=== PATIENT | female | born 1930 | race Caucasian/White ===

== ENCOUNTER 2016-07-25 14:28 | Inpatient (IN) | payer MEDICARE, OTHER ==
[2016-07-25] MEDS ORDERED: Azithromycin 250 MG Tab PO ONE (15:36)
[2016-07-25] MEDS: cefTRIAXone 1 GM Vial IVPUSH SCH (15:39)
[2016-07-25] MEDS ORDERED: Bisacodyl 10 MG Supp RECTAL PRN (17:12)
[2016-07-25] MEDS ORDERED: Calcium Carbonate 750 MG Tab.Chew PO PRN (17:12)
[2016-07-25] MEDS ORDERED: Bisacodyl 5 MG Tab PO PRN (17:12)
[2016-07-25] MEDS: Sodium Chloride 0.9% 1,000 ML IV SCH (17:30)
--- NOTE | 2016-07-25 18:45 | PCM.HP ---
H&P History of Present Illness - General Date of Service: 07/25/16 Admit Problem/Dx: Admission Diagnosis/Problem Admission Diagnosis/Problem Pneumonia Source of Information: Patient, Family, jail records History Limitations: Reports: Altered mental status - History of Present Illness Initial Comments - Free Text/Narative: Mrs. Baptiste is an 85 yo female with PMH of HTN, carotid atherosclerosis, parathyroid adenoma, hypothyroidism, hyperlipidemia, impaired fasting glucose, depression, parkinson's disease, reflux esophagitis, osteoarthritis, and chronic kidney disease who presented to clinic today for evaluation of a cough x 4-5 days. The majority of the history is obtained from long-term staff and the patient's son given her underlying memory impairment. Her son had also been concerned that her breathing was becoming more labored. The patient endorses some subjective fever and chills but has not had a measured fever. Other symptoms include nasal congestion, rhinorrhea, generalized weakness, sleepiness , and an episode of nonbloody vomiting yesterday. The patient denies any chest pain or shortness of breath. There are multiple sick contacts at the care center but no known exposures to influenza. She has not taken any OTC cares. Abdomen Pain Score (Numeric/FACES): 4 - Related Data Allergies/Adverse Reactions: Allergies Allergy/AdvReac Type Severity Reaction Status Date / Time codeine AdvReac Severe Vomiting Verified 07/25/16 14:54 Home Medications: Home Meds Aspirin [Halfprin] 81 mg PO DAILY 09/03/14 [History] Carbidopa/Levodopa [Carbidopa-Levodopa 25-100 Tab] 2 tab PO QID 09/03/14 [ History] Carbidopa/Levodopa [Sinemet CR 50-200] 1 tab PO DAILY 09/03/14 [History] rOPINIRole HCl [Requip] 2 mg PO TID 09/03/14 [History] Cholecalciferol (Vitamin D3) [Vitamin D3] 1,000 units PO DAILY tablet 09/04/14 [Rx] Levothyroxine [Synthroid] 100 mcg PO ACBREAKFAST tablet 09/04/14 [Rx] Omeprazole 20 mg PO ACBREAKFAST cap.cr 09/04/14 [Rx] Simvastatin [Zocor] 20 mg PO BEDTIME tablet 09/04/14 [Rx] Acetaminophen 1,000 mg PO BID 07/25/16 [History] Acetaminophen 650 mg PO Q4H PRN 07/25/16 [History] Bisacodyl 10 mg RECTAL DAILY PRN 07/25/16 [History] Bisacodyl [Dulcolax] 5 mg PO Q72H PRN 07/25/16 [History] Calcium Carbonate [Tums] 2 tab PO QID PRN 07/25/16 [History] Calcium Citrate/Vitamin D3 [Citracal + D Maximum Caplet] 1 tab PO BID 07/25/16 [ History] Furosemide 20 mg PO DAILY PRN 07/25/16 [History] Ondansetron HCl [Zofran] 4 mg PO Q8H PRN 07/25/16 [History] Oxybutynin Chloride [Oxybutynin Chloride ER] 10 mg PO BEDTIME 07/25/16 [History] Sertraline HCl [Sertraline HCl] 25 mg PO DAILY 07/25/16 [History] traMADol HCl [Tramadol HCl] 50 mg PO Q6H PRN 07/25/16 [History] Past Medical History HEENT History: Reports: Cataract Cardiovascular History: Reports: High cholesterol, Hypertension, Other (see below) Other Cardiovascular History: carotid atherosclerosis Respiratory History: Reports: SOB Gastrointestinal History: Reports: GERD Genitourinary History: Reports: Chronic renal insuffiency, Urinary incontinence Musculoskeletal History: Reports: Osteoarthritis, Other (see below) Other Musculoskeletal History: weakness, abnormal gait Neurological History: Reports: Parkinson's Psychiatric History: Reports: Depression Endocrine/Metabolic History: Reports: Hypothyroidism, Vitamin D deficiency, Other (see below) Other Endocrine/Metabolic History: parathyroid adenoma Hematologic History: Reports: Anemia Immunologic History: Reports: None Oncologic (Cancer) History: Reports: Other (see below) Other Oncologic History: skin cancer Dermatologic History: Reports: None - Infectious Disease History Infectious Disease History: Reports: None - Past Surgical History HEENT Surgical History: Reports: Cataract surgery GI Surgical History: Reports: Appendectomy, Cholecystectomy Endocrine Surgical History: Reports: Parathyroidectomy Social & Family History - Family History Cardiac: Reports: CAD Respiratory: Reports: COPD Neurological: Reports: Parkinson's - Tobacco Use Smoking Status *Q: Never Smoker Second Hand Smoke Exposure: No - Caffeine Use Caffeine Use: Reports: Coffee - Alcohol Use Alcohol Use History: No Days Per Week of Alcohol Use: 0 Alcohol Use in Last Twelve Months: No - Recreational Drug Use Recreational Drug Use: No - Living Situation & Occupation Living situation: Reports: , extended care facility H&P Review of Systems - Review of Systems: Review Of Systems: See Below General: Reports: fever, chills, malaise, weakness, decreased appetite HEENT: Reports: rhinitis, sinus congestion. Denies: sore throat Pulmonary: Reports: Cough. Denies: Shortness of Breath, Wheezing Cardiovascular: Reports: no symptoms Gastrointestinal: Reports: Vomiting. Denies: Abdominal pain, Constipation, Diarrhea Genitourinary: Reports: no symptoms Musculoskeletal: Reports: no symptoms Skin: Reports: no symptoms Neurological: Reports: Confusion. Denies: Seizure, Weakness, Change in Speech Exam - Exam Exam: See Below - Vital Signs Vital Signs: Last Vital Signs Temp 37.0 C 07/25/16 16:50 Pulse 71 07/25/16 16:50 Resp 16 07/25/16 14:45 BP 162/71 H 07/25/16 16:50 Pulse Ox 94 L 07/25/16 16:50 Weight: 67.358 kg - Exam General: other (drowsy but alerts and answers questions when asked; in no acute distress) HEENT: Conjunctiva clear, EOMI, Mucosa moist & pink, Posterior pharynx clear, Pupils equal, Pupils reactive, TMs clear Neck: supple, trachea midline. No: lymphadenopathy, thyromegaly Lungs: Normal respiratory effort, Crackles (LLL) Cardiovascular: regular rate, regular rhythm, normal S1, normal S2. No: systolic murmur, diastolic murmur Abdomen: normal bowel sounds, soft. No: organomegaly, distention, tenderness Back Exam: normal inspection, full range of motion Extremities: normal inspection, normal pulses. No: edema Skin: warm, dry, intact Neurological: cranial nerves intact, reflexes equal bilateral, strength equal bilateral, normal speech, sensation intact *Q Meaningful Use (ADM) - VTE *Q VTE Criteria *Q: - Stroke *Q Stroke Criteria *Q: - AMI *Q AMI Criteria *Q: - Problem List (1) Community acquired pneumonia SNOMED Code(s): 164366327 ICD Code: J18.9 - PNEUMONIA, UNSPECIFIED ORGANISM Status: Acute Current Visit: Yes Problem Details: - Patient's symptoms, lung exam, and chest x-ray are consistent with community acquired pneumonia. - Influenza swab was negative. - She does not currently meet any sepsis criteria. - She has not recently been hospitalized and was admitted to [facility] <1 month ago; therefore, this truly is community acquired pneumonia. - Will treat with ceftriaxone and azithromycin. If she does well on this regimen , we will plan to transition her to cefdinir and azithromycin for homegoing. - She is unlikely to eat or drink much tonight; therefore, I will put her on maintenance IV fluids overnight. - Will obtain blood cultures if she begins febrile. (2) Generalized weakness SNOMED Code(s): 59594745 ICD Code: R53.1 - WEAKNESS Status: Acute Current Visit: Yes Problem Details: - Secondary to pneumonia. Based on the convincing evidence for pneumonia and absence of other symptoms, no further work-up is indicated at this time. - Will treat pneumonia as above. - PT consult as I have a fairly high suspicion that she will require swing bed for rehab after her acute stay is completed. (3) Hyponatremia SNOMED Code(s): 15021361 ICD Code: E87.1 - HYPO-OSMOLALITY AND HYPONATREMIA Status: Acute Current Visit: Yes Problem Details: - Na low at 128 but this is actually up from previous (123). - Maintenance fluids as above will not result in too rapid an increase in sodium. (4) Parkinsons disease SNOMED Code(s): 29178267 ICD Code: G20 - PARKINSON'S DISEASE Status: Chronic Current Visit: Yes Problem Details: - Continue sinemet and requip. (5) Hypertension SNOMED Code(s): 32594962 ICD Code: I10 - ESSENTIAL (PRIMARY) HYPERTENSION Status: Chronic Current Visit: Yes Problem Details: - Patient is actually currently not on any antihypertensives. - Her BP has been quite low in clinic but has been stable. - She does have lasix on her list but PRN. Will hold this for now and dose as needed for evidence of fluid overload. - Maintenance IV fluids overnight. Bolus as needed for SBP <90. Qualifiers: Hypertension type: essential hypertension Qualified Code(s): I10 - Essential (primary) hypertension (6) Hypothyroidism SNOMED Code(s): 20329340 ICD Code: E03.9 - HYPOTHYROIDISM, UNSPECIFIED Status: Chronic Current Visit: Yes Problem Details: - Continue levothyroxine. Qualifiers: Hypothyroidism type: unspecified Qualified Code(s): E03.9 - Hypothyroidism , unspecified (7) Hyperlipidemia SNOMED Code(s): 95913277 ICD Code: E78.5 - HYPERLIPIDEMIA, UNSPECIFIED Status: Chronic Current Visit: Yes Problem Details: - Continue simvastatin. Qualifiers: Hyperlipidemia type: unspecified Qualified Code(s): E78.5 - Hyperlipidemia , unspecified (8) Depression SNOMED Code(s): 96866409 ICD Code: F32.9 - MAJOR DEPRESSIVE DISORDER, SINGLE EPISODE, UNSPECIFIED Status: Chronic Current Visit: Yes Problem Details: - Continue zoloft. Qualifiers: Depression Type: major depressive disorder Major depression recurrence: recurrent (9) Reflux esophagitis SNOMED Code(s): 272308548 ICD Code: K21.0 - GASTRO-ESOPHAGEAL REFLUX DISEASE WITH ESOPHAGITIS Status : Chronic Current Visit: Yes Problem Details: - Continue omeprazole. (10) Chronic kidney disease SNOMED Code(s): 718097864 ICD Code: N18.9 - CHRONIC KIDNEY DISEASE, UNSPECIFIED Status: Chronic Current Visit: Yes Problem Details: - Creatinine is up slightly but not to the point of CAROLYNN. - Likely has some mild dehydration. - Maintenance fluids as above. Qualifiers: Chronic kidney disease stage: unspecified stage Qualified Code(s): N18.9 - Chronic kidney disease, unspecified (11) Osteoarthritis SNOMED Code(s): 673918753 ICD Code: M19.90 - UNSPECIFIED OSTEOARTHRITIS, UNSPECIFIED SITE Status: Chronic Current Visit: Yes Problem Details: - Continue tylenol. - Hold tramadol until her sleepiness improves. Qualifiers: Osteoarthritis location: unspecified site Osteoarthritis type: unspecified Qualified Code(s): M19.90 - Unspecified osteoarthritis, unspecified site Problem List Initiated/Reviewed/Updated: Yes Orders Last 24hrs: Active Orders 24 hr Category Date Time Status Admission Status [Patient Status] [ADT] Routine ADT 07/25/16 14:29 Active Notify Provider Vital Signs [RC] 06,10,14,18,22,02 Care 07/25/16 15:38 Active Oxygen Therapy [RC] .PRN Care 07/25/16 15:37 Active Up With Assistance [RC] 08,20 Care 07/25/16 15:37 Active VTE/DVT Education [RC] .PRN Care 07/25/16 15:37 Active Vital Signs [RC] 06,10,14,18,22,02 Care 07/25/16 15:37 Active PT Evaluation and Treatment [CONS] Routine Cons 07/25/16 15:37 Active Regular Diet [DIET] Diet 07/25/16 Dinner Active BASIC METABOLIC PANEL,BMP [CHEM] Routine Lab 07/26/16 05:11 Ordered CBC WITH AUTO DIFF [HEME] Routine Lab 07/26/16 05:11 Ordered CULTURE MRSA SURVEY [RM] Routine Lab 07/25/16 15:15 Received Acetaminophen [Tylenol Extra Strength] Med 07/25/16 20:00 Active 1,000 mg PO BID Aspirin [Halfprin] Med 07/26/16 08:00 Active 81 mg PO DAILY Bisacodyl [Dulcolax] Med 07/25/16 17:12 Active 10 mg RECTAL DAILY PRN Bisacodyl [Dulcolax] Med 07/25/16 17:12 Active 5 mg PO Q72H PRN Calcium Carbonate [Tums Extra Strength] Med 07/25/16 17:12 Active 1,500 mg PO QID PRN Calcium Citrate/Vitamin D3 [Calcium Citrate + D] Med 07/25/16 20:00 Active 1 tab PO BID Carbidopa/Levodopa [Sinemet 25-100 mg] Med 07/25/16 20:00 Active 2 tab PO QID Carbidopa/Levodopa [Sinemet Cr 50-200 mg] Med 07/26/16 08:00 Active 1 tab PO DAILY Enoxaparin [Lovenox] Med 07/26/16 20:00 Active 40 mg SUBCUT BEDTIME Levothyroxine [Synthroid] Med 07/26/16 07:00 Active 100 mcg PO ACBREAKFAST Omeprazole Med 07/26/16 07:00 Active 20 mg PO ACBREAKFAST Oxybutynin [Oxybutynin ER] Med 07/25/16 20:00 Active 10 mg PO BEDTIME Sertraline [Zoloft] Med 07/26/16 08:00 Active 25 mg PO DAILY Simvastatin [Zocor] Med 07/25/16 20:00 Active 20 mg PO BEDTIME Sodium Chloride 0.9% [Normal Saline] 1,000 ml Med 07/25/16 17:30 Active IV ASDIRECTED Sodium Chloride 0.9% [Saline Flush] Med 07/25/16 15:40 Active 10 ml FLUSH ASDIRECTED PRN cefTRIAXone [Rocephin] Med 07/25/16 15:00 Active 1 gm IVPUSH Q24H rOPINIRole [Requip] Med 07/25/16 20:00 Active 2 mg PO TID Resuscitation Status Routine Resus Stat 07/25/16 15:37 Ordered Medication Orders Acetaminophen (Tylenol Extra Strength) 1,000 mg PO BID [facility] Aspirin (Halfprin) 81 mg PO DAILY [facility] Bisacodyl (Dulcolax) 10 mg RECTAL DAILY PRN PRN Reason: Constipation Bisacodyl (Dulcolax) 5 mg PO Q72H PRN PRN Reason: Constipation Calcium Carbonate/Glycine (Tums Extra Strength) 1,500 mg PO QID PRN PRN Reason: Heartburn Calcium Citrate (Calcium Citrate + D) 1 tab PO BID [facility] Carbidopa/Levodopa (Sinemet Cr 50-200 Mg) 1 tab PO DAILY [facility] Carbidopa/Levodopa (Sinemet 25-100 Mg) 2 tab PO QID [facility] Ceftriaxone Sodium (Rocephin) 1 gm IVPUSH Q24H [facility]NA Last Admin: 07/25/16 15:39 Dose: 1 gm Enoxaparin Sodium (Lovenox) 40 mg SUBCUT BEDTIME [facility] Sodium Chloride (Normal Saline) 1,000 mls @ 100 mls/hr IV ASDIRECTED [facility]NA Last Admin: 07/25/16 17:30 Dose: 100 mls/hr Levothyroxine Sodium (Synthroid) 100 mcg PO ACBREAKFAST [facility] Omeprazole (Omeprazole) 20 mg PO ACBREAKFAST [facility] Oxybutynin Chloride (Oxybutynin Er) 10 mg PO BEDTIME [facility] Ropinirole HCl (Requip) 2 mg PO TID [facility] Sertraline HCl (Zoloft) 25 mg PO DAILY [facility] Simvastatin (Zocor) 20 mg PO BEDTIME [facility] Sodium Chloride (Saline Flush) 10 ml FLUSH ASDIRECTED PRN PRN Reason: IV Use Assessment/Plan Comment:: 85 yo female admitted for community acquired pneumonia after presenting to clinic with 4-5 days of cough and generalized weakness. Patient will be treated with ceftriaxone and azithromycin. Maintenance IV fluids overnight. Home medications will be continued with the exception of lasix and tramadol. See details under problems above. Patient will be admitted under acute status. Will have PT assess her for rehab as she will likely require a swing bed stay. Will have her on lovenox for VTE prophylaxis. Anticipate 48-72 hours of admission.
[2016-07-25] MEDS: Carbidopa/Levodopa 25-100 MG Tab PO SCH (20:01)
[2016-07-25] MEDS: Acetaminophen 500 MG Tab PO SCH (20:01)
[2016-07-25] MEDS: Oxybutynin 5 MG Tab.ER PO SCH (20:02)
[2016-07-25] MEDS: Simvastatin 20 MG Tab PO SCH (20:02)
[2016-07-25] MEDS: Calcium Citrate/Vitamin D3 315 MG-250 Unit Tab PO SCH (20:02)
[2016-07-25] MEDS: rOPINIRole 2 MG Tab PO SCH (20:02)
--- NOTE | 2016-07-25 20:02 | PCM.SN ---
- Free Text/Narrative Note: Patient is DNR/DNI as noted on her SNF paperwork and confirmed on conversations with her son.
[2016-07-26] MEDS: Sodium Chloride 0.9% 1,000 ML IV SCH (03:30)
[2016-07-26] MEDS: Omeprazole 20 MG Cap.CR PO SCH (06:06)
[2016-07-26] MEDS: Levothyroxine 100 MCG Tab PO SCH (06:06)
[2016-07-26 07:34] LABS: CHLORIDE,CL 100 mmol/L (98-107); SODIUM,NA 130 mmol/L (136-145)
[2016-07-26] MEDS ORDERED: Carbidopa/Levodopa 50-200 MG Tab.ER PO SCH (08:00)
[2016-07-26] MEDS: Carbidopa/Levodopa 25-100 MG Tab PO SCH ×4 (08:21→17:38)
[2016-07-26] MEDS: Calcium Citrate/Vitamin D3 315 MG-250 Unit Tab PO SCH ×2 (08:21→21:50)
[2016-07-26] MEDS: Acetaminophen 500 MG Tab PO SCH ×2 (08:22→21:50)
[2016-07-26] MEDS: Aspirin 81 MG Tab.EC PO SCH (08:22)
[2016-07-26] MEDS: rOPINIRole 2 MG Tab PO SCH ×3 (08:22→21:50)
[2016-07-26] MEDS: Sertraline 25 MG Tab PO SCH (08:22)
[2016-07-26] MEDS: Sodium Chloride 0.9% 10 ML Syringe FLUSH PRN ×2 (08:25→14:04)
[2016-07-26] MEDS ORDERED: Furosemide 20 MG Tab PO ONE (11:25)
--- NOTE | 2016-07-26 11:36 | PCM.PN ---
- General Info Date of Service: 07/26/16 Subjective Update: Patient states she feels better this am in terms of weakness and breathing. Her cough is still quite bothersome. She had no fever or chills overnight. She denies any chest pain. Her appetite is decreased but she is trying to eat some breakfast. No vomiting or abdominal pain. - Review of Systems General: Reports: No Symptoms HEENT: Reports: no symptoms Pulmonary: Reports: cough. Denies: shortness of breath, wheezing Cardiovascular: Reports: No Symptoms Gastrointestinal: Reports: No symptoms Genitourinary: Reports: no symptoms Musculoskeletal: Reports: no symptoms Skin: Reports: no symptoms - Patient Data Vitals - most recent: Last Vital Signs Temp 36.6 C 07/26/16 10:00 Pulse 68 07/26/16 10:00 Resp 20 07/26/16 10:00 BP 169/72 H 07/26/16 10:00 Pulse Ox 95 07/26/16 10:00 Weight - most recent: 67.358 kg I&O - last 24 hours: Intake & Output 07/25/16 07/26/16 07/26/16 22:59 06:59 14:59 Intake Total 200 1500 Output Total 350 Balance 200 1150 Lab Results last 24 hrs: Laboratory Results - last 24 hr 07/26/16 07/26/16 Range/Units 07:07 07:07 WBC 7.5 (4.0-10.0) x10^3/uL RBC 2.97 L (4.00-5.50) x10^6/uL Hgb 9.6 L (12.0-16.0) g/dL Hct 28.9 L (33.0-47.0) % MCV 97.3 H (78.0-93.0) fL MCH 32.3 H (26.0-32.0) pg MCHC 33.2 (32.0-36.0) g/dL RDW Coeff of Sami 14.2 (10.0-15.0) % Plt Count 196 (130-400) x10^3/uL Neut % (Auto) 80.1 H (50.0-80.0) % Lymph % (Auto) 11.0 L (25.0-50.0) % [place] % (Auto) 7.2 (2.0-11.0) % Eos % (Auto) 1.6 (0.0-4.0) % Baso % (Auto) 0.1 L (0.2-1.2) % Sodium 130 L (136-145) mmol/L Potassium 3.9 (3.5-5.1) mmol/L Chloride 100 (98-107) mmol/L Carbon Dioxide 26 (21-32) mmol/L BUN 23 H (7-18) mg/dL Creatinine 0.8 (0.55-1.02) mg/dL Est Cr Clr Drug Dosing 42.78 mL/min Estimated GFR (MDRD) > 60 Glucose 88 (74-106) mg/dL Calcium 8.3 L (8.5-10.1) mg/dL Med Orders - Current: Current Medications Acetaminophen (Tylenol Extra Strength) 1,000 mg PO BID [facility] Last Admin: 07/26/16 08:22 Dose: 1,000 mg Aspirin (Halfprin) 81 mg PO DAILY [facility] Last Admin: 07/26/16 08:22 Dose: 81 mg Bisacodyl (Dulcolax) 10 mg RECTAL DAILY PRN PRN Reason: Constipation Bisacodyl (Dulcolax) 5 mg PO Q72H PRN PRN Reason: Constipation Calcium Carbonate/Glycine (Tums Extra Strength) 1,500 mg PO QID PRN PRN Reason: Heartburn Calcium Citrate (Calcium Citrate + D) 1 tab PO BID [facility] Last Admin: 07/26/16 08:21 Dose: 1 tab Carbidopa/Levodopa (Sinemet Cr 50-200 Mg) 1 tab PO BEDTIME BH[facility] Carbidopa/Levodopa (Sinemet 25-100 Mg) 2 tab PO 0600,1000,1400,1800 [facility] Last Admin: 07/26/16 11:03 Dose: 2 tab Ceftriaxone Sodium (Rocephin) 1 gm IVPUSH Q24H [facility] Last Admin: 07/25/16 15:39 Dose: 1 gm Enoxaparin Sodium (Lovenox) 40 mg SUBCUT BEDTIME [facility] Furosemide (Lasix) 20 mg PO ONETIME ONE Stop: 07/26/16 11:26 Sodium Chloride (Normal Saline) 1,000 mls @ 100 mls/hr IV ASDIRECTED [facility] Last Admin: 07/26/16 03:30 Dose: 100 mls/hr Levothyroxine Sodium (Synthroid) 100 mcg PO ACBREAKFAST [facility] Last Admin: 07/26/16 06:06 Dose: 100 mcg Omeprazole (Omeprazole) 20 mg PO ACBREAKFAST [facility] Last Admin: 07/26/16 06:06 Dose: 20 mg Oxybutynin Chloride (Oxybutynin Er) 10 mg PO BEDTIME [facility] Last Admin: 07/25/16 20:02 Dose: 10 mg Ropinirole HCl (Requip) 2 mg PO TID [facility] Last Admin: 07/26/16 11:03 Dose: 2 mg Sertraline HCl (Zoloft) 25 mg PO DAILY [facility] Last Admin: 07/26/16 08:22 Dose: 25 mg Simvastatin (Zocor) 20 mg PO BEDTIME [facility] Last Admin: 07/25/16 20:02 Dose: 20 mg Sodium Chloride (Saline Flush) 10 ml FLUSH ASDIRECTED PRN PRN Reason: IV Use Last Admin: 07/26/16 08:25 Dose: 10 ml Discontinued Medications Azithromycin (Zithromax) 500 mg PO ONETIME ONE Stop: 07/25/16 15:37 Last Admin: 07/25/16 15:45 Dose: 500 mg Carbidopa/Levodopa (Sinemet Cr 50-200 Mg) 1 tab PO DAILY [facility] Last Admin: 07/26/16 08:21 Dose: 1 tab Carbidopa/Levodopa (Sinemet 25-100 Mg) 2 tab PO QID [facility] Last Admin: 07/26/16 08:21 Dose: 2 tab - Exam General: alert, cooperative, no acute distress HEENT: Pupils equal, Pupils reactive, Mucous membr. moist/pink Neck: supple, no thyromegaly. No: lymphadenopathy Lungs: Rhonchi (bilaterally at the bases) Cardiovascular: Regular Rate, Regular Rhythm, No Murmurs Abdomen: bowel sounds present, soft, no tenderness, no distension Extremities: no edema, normal pulses Skin: warm, dry, intact - Problem List & Annotations (1) Community acquired pneumonia SNOMED Code(s): 410282606 Code(s): J18.9 - PNEUMONIA, UNSPECIFIED ORGANISM Status: Acute Current Visit: Yes Annotation/Comment:: - Symptoms improving. No fevers overnight. - Continue ceftriaxone and azithromycin. Will plan to transition her to cefdinir and azithromycin for homegoing. - D/C IV fluids; she can do PO ad gilson. - Will obtain blood cultures if she becomes febrile. (2) Generalized weakness SNOMED Code(s): 53994822 Code(s): R53.1 - WEAKNESS Status: Acute Current Visit: Yes Annotation/ Comment:: - Secondary to pneumonia. Based on the convincing evidence for pneumonia and absence of other symptoms, no further work-up is indicated at this time. - Will treat pneumonia as above. - PT consult as I have a fairly high suspicion that she will require swing bed for rehab after her acute stay is completed. (3) Hyponatremia SNOMED Code(s): 21247242 Code(s): E87.1 - HYPO-OSMOLALITY AND HYPONATREMIA Status: Chronic Current Visit: Yes Annotation/Comment:: - Na up to 130 today. - Will not specifically correct this as she is chronically low. (4) Parkinsons disease SNOMED Code(s): 31268991 Code(s): G20 - PARKINSON'S DISEASE Status: Chronic Current Visit: Yes Annotation/Comment:: - Continue sinemet and requip. (5) Hypertension SNOMED Code(s): 97244691 Code(s): I10 - ESSENTIAL (PRIMARY) HYPERTENSION Status: Chronic Current Visit: Yes Qualifiers: Hypertension type: essential hypertension Qualified Code(s): I10 - Essential (primary) hypertension Annotation/Comment:: - Patient is actually currently not on any antihypertensives. - BP better since admission. - CXR was read as possible CHF but she has no evidence to suggest this is the case. That being said, will do a dose of her home lasix 20 mg today. (6) Hypothyroidism SNOMED Code(s): 32961463 Code(s): E03.9 - HYPOTHYROIDISM, UNSPECIFIED Status: Chronic Current Visit: Yes Qualifiers: Hypothyroidism type: unspecified Qualified Code(s): E03.9 - Hypothyroidism , unspecified Annotation/Comment:: - Continue levothyroxine. (7) Hyperlipidemia SNOMED Code(s): 23191090 Code(s): E78.5 - HYPERLIPIDEMIA, UNSPECIFIED Status: Chronic Current Visit: Yes Qualifiers: Hyperlipidemia type: unspecified Qualified Code(s): E78.5 - Hyperlipidemia , unspecified Annotation/Comment:: - Continue simvastatin. (8) Depression SNOMED Code(s): 06074197 Code(s): F32.9 - MAJOR DEPRESSIVE DISORDER, SINGLE EPISODE, UNSPECIFIED Status: Chronic Current Visit: Yes Qualifiers: Depression Type: major depressive disorder Major depression recurrence: recurrent Annotation/Comment:: - Continue zoloft. (9) Reflux esophagitis SNOMED Code(s): 847916008 Code(s): K21.0 - GASTRO-ESOPHAGEAL REFLUX DISEASE WITH ESOPHAGITIS Status: Chronic Current Visit: Yes Annotation/Comment:: - Continue omeprazole. (10) Chronic kidney disease SNOMED Code(s): 969261352 Code(s): N18.9 - CHRONIC KIDNEY DISEASE, UNSPECIFIED Status: Chronic Current Visit: Yes Qualifiers: Chronic kidney disease stage: unspecified stage Qualified Code(s): N18.9 - Chronic kidney disease, unspecified Annotation/Comment:: - Creatinine back to baseline today. - No further intervention needed. (11) Osteoarthritis SNOMED Code(s): 942078384 Code(s): M19.90 - UNSPECIFIED OSTEOARTHRITIS, UNSPECIFIED SITE Status: Chronic Current Visit: Yes Qualifiers: Osteoarthritis location: unspecified site Osteoarthritis type: unspecified Qualified Code(s): M19.90 - Unspecified osteoarthritis, unspecified site Annotation/Comment:: - Continue tylenol. - Hold tramadol for now. - Will consider restarting if she remains more alert throughout the day today. - Problem List Review Problem List Initiated/Reviewed/Updated: Yes - My Orders Last 24 Hours: My Active Orders 07/25/16 14:29 Admission Status [Patient Status] [ADT] Routine 07/25/16 15:00 cefTRIAXone [Rocephin] 1 gm IVPUSH Q24H 07/25/16 15:15 CULTURE MRSA SURVEY [RM] Routine 07/25/16 15:37 Oxygen Therapy [RC] .PRN Up With Assistance [RC] 08,20 VTE/DVT Education [RC] .PRN Vital Signs [RC] 06,10,14,18,22,02 PT Evaluation and Treatment [CONS] Routine Resuscitation Status Routine 07/25/16 15:38 Notify Provider Vital Signs [RC] 06,10,14,18,22,02 07/25/16 15:40 Sodium Chloride 0.9% [Saline Flush] 10 ml FLUSH ASDIRECTED PRN 07/25/16 17:12 Bisacodyl [Dulcolax] 10 mg RECTAL DAILY PRN Bisacodyl [Dulcolax] 5 mg PO Q72H PRN Calcium Carbonate [Tums Extra Strength] 1,500 mg PO QID PRN 07/25/16 17:30 Sodium Chloride 0.9% [Normal Saline] 1,000 ml IV ASDIRECTED 07/25/16 20:00 Acetaminophen [Tylenol Extra Strength] 1,000 mg PO BID Calcium Citrate/Vitamin D3 [Calcium Citrate + D] 1 tab PO BID Oxybutynin [Oxybutynin ER] 10 mg PO BEDTIME Simvastatin [Zocor] 20 mg PO BEDTIME rOPINIRole [Requip] 2 mg PO TID 07/25/16 Dinner Regular Diet [DIET] 07/26/16 07:00 Levothyroxine [Synthroid] 100 mcg PO ACBREAKFAST Omeprazole 20 mg PO ACBREAKFAST 07/26/16 08:00 Aspirin [Halfprin] 81 mg PO DAILY Sertraline [Zoloft] 25 mg PO DAILY 07/26/16 10:00 Carbidopa/Levodopa [Sinemet 25-100 mg] 2 tab PO 0600,1000,1400,1800 07/26/16 11:25 Furosemide [Lasix] 20 mg PO ONETIME ONE 07/26/16 20:00 Carbidopa/Levodopa [Sinemet Cr 50-200 mg] 1 tab PO BEDTIME Enoxaparin [Lovenox] 40 mg SUBCUT BEDTIME 07/27/16 08:00 Azithromycin [Zithromax] 250 mg PO DAILY - Assessment Assessment:: 85 yo female admitted with CAP and resultant generalized weakness and fatigue. She is doing slightly better this am. - Plan Plan:: Continue ceftriaxone and azithromycin. PO fluids today. Home medications will be continued with the exception of tramadol. See details under problems above. Patient will remain admitted under acute status, likely for the next 24-48 hours. Will have PT assess her for rehab as she will likely require a swing bed stay. Will have her on lovenox for VTE prophylaxis. She is DNR/DNI and this was confirmed with her son on admission.
[2016-07-26] MEDS: cefTRIAXone 1 GM Vial IVPUSH SCH (14:02)
[2016-07-26] MEDS: Oxybutynin 5 MG Tab.ER PO SCH (21:49)
[2016-07-26] MEDS: Enoxaparin 40 MG/0.4 ML Syringe SUBCUT SCH (21:49)
[2016-07-26] MEDS: Simvastatin 20 MG Tab PO SCH (21:51)
[2016-07-26] MEDS: Carbidopa/Levodopa 50-200 MG Tab.ER PO SCH (21:51)
[2016-07-27] MEDS: Levothyroxine 100 MCG Tab PO SCH (06:25)
[2016-07-27] MEDS: Omeprazole 20 MG Cap.CR PO SCH (06:25)
[2016-07-27] MEDS: Carbidopa/Levodopa 25-100 MG Tab PO SCH ×4 (06:25→17:44)
[2016-07-27 07:31] LABS: CHLORIDE,CL 97 mmol/L (98-107); SODIUM,NA 133 mmol/L (136-145)
[2016-07-27] MEDS: Sertraline 25 MG Tab PO SCH (07:43)
[2016-07-27] MEDS: Aspirin 81 MG Tab.EC PO SCH (07:43)
[2016-07-27] MEDS: rOPINIRole 2 MG Tab PO SCH ×3 (07:43→21:44)
[2016-07-27] MEDS: Calcium Citrate/Vitamin D3 315 MG-250 Unit Tab PO SCH ×2 (07:43→21:44)
[2016-07-27] MEDS: Azithromycin 250 MG Tab PO SCH (07:44)
[2016-07-27] MEDS: Acetaminophen 500 MG Tab PO SCH ×2 (07:44→21:43)
--- NOTE | 2016-07-27 10:10 | PCM.PN ---
- General Info Date of Service: 07/27/16 Subjective Update: Patient states she does not know how she is doing. She feels her cough is improving, as his her breathing. She denies any chest pain, fever, or chills. She denies any abdominal pain but did vomit once this morning. She cannot really say why she is feeling poorly, just that she is. - Review of Systems General: Reports: No Symptoms HEENT: Reports: no symptoms Pulmonary: Reports: no symptoms Cardiovascular: Reports: No Symptoms Gastrointestinal: Reports: No symptoms Musculoskeletal: Reports: no symptoms Skin: Reports: no symptoms - Patient Data Vitals - most recent: Last Vital Signs Temp 36.7 C 07/27/16 06:00 Pulse 69 07/27/16 06:00 Resp 20 07/27/16 06:00 BP 151/76 H 07/27/16 06:00 Pulse Ox 95 07/27/16 06:00 Weight - most recent: 67.358 kg I&O - last 24 hours: Intake & Output 07/26/16 07/27/16 07/27/16 22:59 06:59 14:59 Intake Total 1441 200 Balance 1441 200 Lab Results last 24 hrs: Laboratory Results - last 24 hr 07/27/16 07/27/16 Range/Units 06:42 06:42 WBC 5.5 (4.0-10.0) x10^3/uL RBC 2.94 L (4.00-5.50) x10^6/uL Hgb 9.5 L (12.0-16.0) g/dL Hct 28.2 L (33.0-47.0) % MCV 95.9 H (78.0-93.0) fL MCH 32.3 H (26.0-32.0) pg MCHC 33.7 (32.0-36.0) g/dL RDW Coeff of Sami 13.9 (10.0-15.0) % Plt Count 219 (130-400) x10^3/uL Neut % (Auto) 76.7 (50.0-80.0) % Lymph % (Auto) 13.1 L (25.0-50.0) % [place] % (Auto) 7.6 (2.0-11.0) % Eos % (Auto) 2.2 (0.0-4.0) % Baso % (Auto) 0.4 (0.2-1.2) % Sodium 133 L (136-145) mmol/L Potassium 3.6 (3.5-5.1) mmol/L Chloride 97 L (98-107) mmol/L Carbon Dioxide 28 (21-32) mmol/L BUN 17 (7-18) mg/dL Creatinine 0.8 (0.55-1.02) mg/dL Est Cr Clr Drug Dosing 42.78 mL/min Estimated GFR (MDRD) > 60 Glucose 94 (74-106) mg/dL Calcium 8.0 L (8.5-10.1) mg/dL C-Reactive Protein 4.5 H (<=0.9) mg/dL B-Natriuretic Peptide 1803 H (<=450) pg/mL [place] Results last 24 hrs: Microbiology 07/25/16 15:15 MRSA Surveillance Culture - Final Nasal, Left NO MRSA ISOLATED Med Orders - Current: Current Medications Acetaminophen (Tylenol Extra Strength) 1,000 mg PO BID [facility] Last Admin: 07/27/16 07:44 Dose: 1,000 mg Aspirin (Halfprin) 81 mg PO DAILY [facility] Last Admin: 07/27/16 07:43 Dose: 81 mg Azithromycin (Zithromax) 250 mg PO DAILY [facility] Stop: 07/30/16 08:30 Last Admin: 07/27/16 07:44 Dose: 250 mg Bisacodyl (Dulcolax) 10 mg RECTAL DAILY PRN PRN Reason: Constipation Bisacodyl (Dulcolax) 5 mg PO Q72H PRN PRN Reason: Constipation Calcium Carbonate/Glycine (Tums Extra Strength) 1,500 mg PO QID PRN PRN Reason: Heartburn Calcium Citrate (Calcium Citrate + D) 1 tab PO BID [facility] Last Admin: 07/27/16 07:43 Dose: 1 tab Carbidopa/Levodopa (Sinemet Cr 50-200 Mg) 1 tab PO BEDTIME [facility] Last Admin: 07/26/16 21:51 Dose: 1 tab Carbidopa/Levodopa (Sinemet 25-100 Mg) 2 tab PO 0600,1000,1400,1800 [facility] Last Admin: 07/27/16 06:25 Dose: 2 tab Ceftriaxone Sodium (Rocephin) 1 gm IVPUSH Q24H [facility] Last Admin: 07/26/16 14:02 Dose: 1 gm Enoxaparin Sodium (Lovenox) 40 mg SUBCUT BEDTIME [facility] Last Admin: 07/26/16 21:49 Dose: 40 mg Furosemide (Lasix) 20 mg PO DAILY [facility] Levothyroxine Sodium (Synthroid) 100 mcg PO ACBREAKFAST [facility] Last Admin: 07/27/16 06:25 Dose: 100 mcg Omeprazole (Omeprazole) 20 mg PO ACBREAKFAST [facility] Last Admin: 07/27/16 06:25 Dose: 20 mg Oxybutynin Chloride (Oxybutynin Er) 10 mg PO BEDTIME [facility] Last Admin: 07/26/16 21:49 Dose: 10 mg Ropinirole HCl (Requip) 2 mg PO TID [facility] Last Admin: 07/27/16 07:43 Dose: 2 mg Sertraline HCl (Zoloft) 25 mg PO DAILY [facility] Last Admin: 07/27/16 07:43 Dose: 25 mg Simvastatin (Zocor) 20 mg PO BEDTIME [facility] Last Admin: 07/26/16 21:51 Dose: 20 mg Sodium Chloride (Saline Flush) 10 ml FLUSH ASDIRECTED PRN PRN Reason: IV Use Last Admin: 07/26/16 14:04 Dose: 10 ml Discontinued Medications Azithromycin (Zithromax) 500 mg PO ONETIME ONE Stop: 07/25/16 15:37 Last Admin: 07/25/16 15:45 Dose: 500 mg Carbidopa/Levodopa (Sinemet Cr 50-200 Mg) 1 tab PO DAILY [facility] Last Admin: 07/26/16 08:21 Dose: 1 tab Carbidopa/Levodopa (Sinemet 25-100 Mg) 2 tab PO QID [facility] Last Admin: 07/26/16 08:21 Dose: 2 tab Furosemide (Lasix) 20 mg PO ONETIME ONE Stop: 07/26/16 11:26 Last Admin: 07/26/16 12:10 Dose: 20 mg Sodium Chloride (Normal Saline) 1,000 mls @ 100 mls/hr IV ASDIRECTED [facility] Last Admin: 07/26/16 03:30 Dose: 100 mls/hr - Exam General: alert, cooperative, no acute distress HEENT: Pupils equal, Pupils reactive, Mucous membr. moist/pink Lungs: Normal respiratory effort, Rhonchi (diffusely but less prominent than yesterday) Cardiovascular: Regular Rate, Regular Rhythm, No Murmurs Abdomen: bowel sounds present, soft, no tenderness, no distension Extremities: no edema, normal pulses Skin: warm, dry, intact - Problem List & Annotations (1) Community acquired pneumonia SNOMED Code(s): 723072694 Code(s): J18.9 - PNEUMONIA, UNSPECIFIED ORGANISM Status: Acute Current Visit: Yes Annotation/Comment:: - Symptoms improving. Afebrile since admission. CRP downtrending. Although she never had a leukocytosis, she did have neutrophilia and this has resolved. - Will transition her to cefdinir and azithromycin today to ensure she remains stable and afebrile on this. - D/C IV fluids; she can do PO ad gilson. - Will obtain blood cultures if she becomes febrile. (2) Generalized weakness SNOMED Code(s): 83392649 Code(s): R53.1 - WEAKNESS Status: Acute Current Visit: Yes Annotation/ Comment:: - Secondary to pneumonia. Based on the convincing evidence for pneumonia and absence of other symptoms, no further work-up is indicated at this time. - Will treat pneumonia as above. - PT consulted and do feel she needs some rehab. Since she is from the [facility], this will have to be completed there, however. (3) Hyponatremia SNOMED Code(s): 34228394 Code(s): E87.1 - HYPO-OSMOLALITY AND HYPONATREMIA Status: Chronic Current Visit: Yes Annotation/Comment:: - Na up to 133 today without any specific intervention over the past 24 hours. - Will continue to monitor daily. (4) Parkinsons disease SNOMED Code(s): 68984829 Code(s): G20 - PARKINSON'S DISEASE Status: Chronic Current Visit: Yes Annotation/Comment:: - Continue sinemet and requip. (5) Hypertension SNOMED Code(s): 05878223 Code(s): I10 - ESSENTIAL (PRIMARY) HYPERTENSION Status: Chronic Current Visit: Yes Qualifiers: Hypertension type: essential hypertension Qualified Code(s): I10 - Essential (primary) hypertension Annotation/Comment:: - Patient is actually currently not on any antihypertensives. - BP stable. (6) Hypothyroidism SNOMED Code(s): 62198830 Code(s): E03.9 - HYPOTHYROIDISM, UNSPECIFIED Status: Chronic Current Visit: Yes Qualifiers: Hypothyroidism type: unspecified Qualified Code(s): E03.9 - Hypothyroidism , unspecified Annotation/Comment:: - Continue levothyroxine. (7) Hyperlipidemia SNOMED Code(s): 56981585 Code(s): E78.5 - HYPERLIPIDEMIA, UNSPECIFIED Status: Chronic Current Visit: Yes Qualifiers: Hyperlipidemia type: unspecified Qualified Code(s): E78.5 - Hyperlipidemia , unspecified Annotation/Comment:: - Continue simvastatin. (8) Depression SNOMED Code(s): 41756861 Code(s): F32.9 - MAJOR DEPRESSIVE DISORDER, SINGLE EPISODE, UNSPECIFIED Status: Chronic Current Visit: Yes Qualifiers: Depression Type: major depressive disorder Major depression recurrence: recurrent Annotation/Comment:: - Continue zoloft. (9) Reflux esophagitis SNOMED Code(s): 013137301 Code(s): K21.0 - GASTRO-ESOPHAGEAL REFLUX DISEASE WITH ESOPHAGITIS Status: Chronic Current Visit: Yes Annotation/Comment:: - Continue omeprazole. (10) Chronic kidney disease SNOMED Code(s): 202169605 Code(s): N18.9 - CHRONIC KIDNEY DISEASE, UNSPECIFIED Status: Chronic Current Visit: Yes Qualifiers: Chronic kidney disease stage: unspecified stage Qualified Code(s): N18.9 - Chronic kidney disease, unspecified Annotation/Comment:: - Creatinine remains at baseline. - No further intervention needed. (11) Osteoarthritis SNOMED Code(s): 432963804 Code(s): M19.90 - UNSPECIFIED OSTEOARTHRITIS, UNSPECIFIED SITE Status: Chronic Current Visit: Yes Qualifiers: Osteoarthritis location: unspecified site Osteoarthritis type: unspecified Qualified Code(s): M19.90 - Unspecified osteoarthritis, unspecified site Annotation/Comment:: - Continue tylenol. - She seems to be doing ok without the tramadol but will go ahead and dose at BID PRN to taper off. - Problem List Review Problem List Initiated/Reviewed/Updated: Yes - My Orders Last 24 Hours: My Active Orders 07/26/16 10:00 Carbidopa/Levodopa [Sinemet 25-100 mg] 2 tab PO 0600,1000,1400,1800 07/26/16 20:00 Carbidopa/Levodopa [Sinemet Cr 50-200 mg] 1 tab PO BEDTIME Enoxaparin [Lovenox] 40 mg SUBCUT BEDTIME 07/27/16 08:00 Azithromycin [Zithromax] 250 mg PO DAILY 07/27/16 10:15 Furosemide [Lasix] 20 mg PO DAILY - Assessment Assessment:: 85 yo female admitted with CAP and resultant generalized weakness and fatigue. She continues to gradually improve. - Plan Plan:: Will transition to cefdinir and azithromycin. PO fluids today. Will be on all home medications as of today. See details under problems above. Patient will remain admitted under acute status, likely for the next 24-48 hours. Could potentially be dismissed back to the care center tomorrow. PT has assessed her but she will have to do her rehab at the care center given she lives there. Will have her on lovenox for VTE prophylaxis. She is DNR/DNI and this was confirmed with her son on admission.
[2016-07-27] MEDS ORDERED: traMADol 50 MG Tab PO PRN (10:11)
--- NOTE | 2016-07-27 10:20 | PCM.SN ---
- Free Text/Narrative Note: I inadvertently did not add CHF to her diagnoses. She has an elevated BNP today. This, in addition to her CXR read, does raise concern for possible CHF. This is likely secondary to her pneumonia. At this point, I would not check for ACS given it would not liner roll changer and she has had no chest pain at all. Otherwise, she has had an appropriate laboratory work-up. TSH testing is unlikely to be accurate in the setting of her illness. Will schedule her home PO lasix daily.
[2016-07-27] MEDS: Cefdinir 300 MG Cap PO SCH ×2 (10:36→21:44)
[2016-07-27] MEDS: Furosemide 20 MG Tab PO SCH (10:37)
[2016-07-27] MEDS: Oxybutynin 5 MG Tab.ER PO SCH (21:43)
[2016-07-27] MEDS: Simvastatin 20 MG Tab PO SCH (21:43)
[2016-07-27] MEDS: Carbidopa/Levodopa 50-200 MG Tab.ER PO SCH (21:43)
[2016-07-27] MEDS: Enoxaparin 40 MG/0.4 ML Syringe SUBCUT SCH (21:44)
[2016-07-28] MEDS: Levothyroxine 100 MCG Tab PO SCH (06:26)
[2016-07-28] MEDS: Carbidopa/Levodopa 25-100 MG Tab PO SCH ×2 (06:26→10:24)
[2016-07-28] MEDS: Omeprazole 20 MG Cap.CR PO SCH (06:27)
[2016-07-28 07:27] LABS: CHLORIDE,CL 98 mmol/L (98-107); SODIUM,NA 134 mmol/L (136-145)
[2016-07-28] MEDS: Furosemide 20 MG Tab PO SCH (08:13)
[2016-07-28] MEDS: Aspirin 81 MG Tab.EC PO SCH (08:13)
[2016-07-28] MEDS: Calcium Citrate/Vitamin D3 315 MG-250 Unit Tab PO SCH (08:13)
[2016-07-28] MEDS: rOPINIRole 2 MG Tab PO SCH ×2 (08:14→11:41)
[2016-07-28] MEDS: Cefdinir 300 MG Cap PO SCH (08:14)
[2016-07-28] MEDS: Acetaminophen 500 MG Tab PO SCH (08:15)
[2016-07-28] MEDS: Sertraline 25 MG Tab PO SCH (08:18)
[2016-07-28] MEDS: Azithromycin 250 MG Tab PO SCH (08:18)
[2016-07-28 08:41] VITALS: BP 118/62
--- NOTE | 2016-07-28 08:59 | PCM.DCSUM1 ---
Discharge Summary - Hospital Course Brief History: Mrs. Baptiste is an 85 yo female who presented to clinic the day of admission for evaluation of 4-5 days of a "bad" cough, increased sleepiness, and generalized weakness. Her son had also noted that her breathing seemed to be more labored than usual. She had not had any known fever or chills. Evaluation in clinic was consistent with community acquired pneumonia as the cause for her symptoms. An influenza swab was negative. Her labs were otherwise ok with the exception of looking like she had some dehydration as well. Due to her high pneumonia severity index score, the decision was made to admit her to the hospital. - Discharge Data Discharge Date: 07/28/16 Discharge Disposition: DC/Tfer to 03 Condition: Good - Discharge Diagnosis/Problem(s) (1) Community acquired pneumonia SNOMED Code(s): 432362671 ICD Code: J18.9 - PNEUMONIA, UNSPECIFIED ORGANISM Status: Acute Current Visit: Yes Problem Details: Diagnosis made based on significant cough, initial lung exam, and CXR findings. Her WBC were normal but she did have a left shift and her CRP was also elevated. She was treated with ceftriaxone and azithromycin initially. Her symptoms improved and she was afebrile since admission. Her CRP was also downtrending. She was transitioned to cefdinir and azithromycin on 07/27 and had no recurrence of fever or worsening symptoms. She was able to keep up hydration with oral fluids. She will have follow-up regarding the pneumonia at her regularly scheduled SNF recertification on 08/01. (2) Generalized weakness SNOMED Code(s): 77735765 ICD Code: R53.1 - WEAKNESS Status: Acute Current Visit: Yes Problem Details: Likely secondary to the pneumonia. Based on the convincing evidence for pneumonia and absence of other symptoms, no further work-up was specifically obtained. She did have some improvement with treatment of the pneumonia but could benefit from some targeted rehab as well. This will need to be done at the [facility] since she has already been a resident there. (3) Hyponatremia SNOMED Code(s): 06736780 ICD Code: E87.1 - HYPO-OSMOLALITY AND HYPONATREMIA Status: Chronic Current Visit: Yes Problem Details: This is chronic for her. Her sodium has actually gradually trended upward each day of her hospitalization and is now near normal at 134. Recheck at the care center on a routine basis. (4) Parkinsons disease SNOMED Code(s): 41685585 ICD Code: G20 - PARKINSON'S DISEASE Status: Chronic Current Visit: Yes Problem Details: Sinemet and requip were continued. (5) Hypertension SNOMED Code(s): 07370114 ICD Code: I10 - ESSENTIAL (PRIMARY) HYPERTENSION Status: Chronic Current Visit: Yes Problem Details: Patient is actually currently not on any antihypertensives. Her blood pressure was within acceptable limits during her hospital stay. Qualifiers: Hypertension type: essential hypertension Qualified Code(s): I10 - Essential (primary) hypertension (6) Hypothyroidism SNOMED Code(s): 43486748 ICD Code: E03.9 - HYPOTHYROIDISM, UNSPECIFIED Status: Chronic Current Visit: Yes Problem Details: Levothyroxine was continued. Qualifiers: Hypothyroidism type: unspecified Qualified Code(s): E03.9 - Hypothyroidism , unspecified (7) Hyperlipidemia SNOMED Code(s): 86671167 ICD Code: E78.5 - HYPERLIPIDEMIA, UNSPECIFIED Status: Chronic Current Visit: Yes Problem Details: Simvastatin was continued. Qualifiers: Hyperlipidemia type: unspecified Qualified Code(s): E78.5 - Hyperlipidemia , unspecified (8) Depression SNOMED Code(s): 41511864 ICD Code: F32.9 - MAJOR DEPRESSIVE DISORDER, SINGLE EPISODE, UNSPECIFIED Status: Chronic Current Visit: Yes Problem Details: Zoloft was continued. Qualifiers: Depression Type: major depressive disorder Major depression recurrence: recurrent (9) Reflux esophagitis SNOMED Code(s): 418088034 ICD Code: K21.0 - GASTRO-ESOPHAGEAL REFLUX DISEASE WITH ESOPHAGITIS Status : Chronic Current Visit: Yes Problem Details: Omeprazole was continued. (10) Chronic kidney disease SNOMED Code(s): 906046140 ICD Code: N18.9 - CHRONIC KIDNEY DISEASE, UNSPECIFIED Status: Chronic Current Visit: Yes Problem Details: Creatinine mildly elevated on admission but was downtrending as of the following day. It has returned to baseline and remained there since. Qualifiers: Chronic kidney disease stage: unspecified stage Qualified Code(s): N18.9 - Chronic kidney disease, unspecified (11) Osteoarthritis SNOMED Code(s): 251029694 ICD Code: M19.90 - UNSPECIFIED OSTEOARTHRITIS, UNSPECIFIED SITE Status: Chronic Current Visit: Yes Problem Details: Tylenol was continued. Her tramadol was held until her sleepiness improved. It was restarted yesterday and she has not used any doses thus far. Therefore, we will go ahead and discontinue this for now and see how she does. Qualifiers: Osteoarthritis location: unspecified site Osteoarthritis type: unspecified Qualified Code(s): M19.90 - Unspecified osteoarthritis, unspecified site (12) Congestive heart failure SNOMED Code(s): 36584634 ICD Code: I50.9 - HEART FAILURE, UNSPECIFIED Status: Acute Current Visit : Yes Problem Details: Her initial chest x-ray was read by radiology as CHF and her BNP was elevated as well. She did not have other signs of fluid overload and her vital signs were stable; therefore, her home lasix that has been PRN was scheduled instead. I suspect this is secondary to her pneumonia. She had no symptoms of ACS and her other labs looked good. I did not check a TSH as this would not have been accurate in the setting of her illness. An echo could be considered as an outpatient depending on how she does. Qualifiers: Congestive heart failure type: unspecified congestive heart failure type Congestive heart failure chronicity: acute Qualified Code(s): I50.9 - Heart failure, unspecified - Patient Summary/Data Operative Procedure(s) Performed: none Complications: none Consults: Consultations 07/25/16 15:37 PT Evaluation and Treatment [CONS] Routine Labs Pending at D/C: none Recommended Follow-up Testing/Procedures: none Planned Operative Procedure(s) after DC: none Hospital Course: The patient's level of alertness quickly improved within the first 24 hours of admission. She remained generally weak and assessment by PT recommended some rehabilitation after returning back to the care center. She was treated with IV antibiotics for 48 hours and then transitioned to PO antibiotics without incident. Please see details under individual problems above. She never required oxygen, never had a fever, and was otherwise stable. Her lasix was scheduled daily. She was felt stable for dismissal back to the care center with follow-up as already scheduled with Dr. Mcghee on 08/01. - Patient Instructions Diet: Usual Diet as Tolerated Fluid Restriction: 2000 mL Activity: As Tolerated Activity, Other: PT to assess and treat for debility Driving: Do Not Drive Showering/Bathing: May Shower Notify Provider of: Fever, Increased Pain, Swelling and Redness, Drainage, Nausea and/or Vomiting - Discharge Plan Prescriptions/Med Rec: Azithromycin [Zithromax] 250 mg PO DAILY #2 tablet Cefdinir [IJD: Cefdinir] 300 mg PO BID #7 capsule Home Medications: Home Meds Aspirin [Halfprin] 81 mg PO DAILY 09/03/14 [History] Carbidopa/Levodopa [Carbidopa-Levodopa 25-100 Tab] 2 tab PO QID 09/03/14 [ History] Carbidopa/Levodopa [Sinemet CR 50-200] 1 tab PO BEDTIME 09/03/14 [History] rOPINIRole HCl [Requip] 2 mg PO TID 09/03/14 [History] Cholecalciferol (Vitamin D3) [Vitamin D3] 1,000 units PO DAILY tablet 09/04/14 [Rx] Levothyroxine [Synthroid] 100 mcg PO ACBREAKFAST tablet 09/04/14 [Rx] Omeprazole 20 mg PO ACBREAKFAST cap.cr 09/04/14 [Rx] Simvastatin [Zocor] 20 mg PO BEDTIME tablet 09/04/14 [Rx] Acetaminophen 1,000 mg PO BID 07/25/16 [History] Acetaminophen 650 mg PO Q4H PRN 07/25/16 [History] Bisacodyl 10 mg RECTAL DAILY PRN 07/25/16 [History] Bisacodyl [Dulcolax] 5 mg PO Q72H PRN 07/25/16 [History] Calcium Carbonate [Tums] 2 tab PO QID PRN 07/25/16 [History] Calcium Citrate/Vitamin D3 [Citracal + D Maximum Caplet] 1 tab PO BID 07/25/16 [ History] Ondansetron HCl [Zofran] 4 mg PO Q8H PRN 07/25/16 [History] Oxybutynin Chloride [Oxybutynin Chloride ER] 10 mg PO BEDTIME 07/25/16 [History] Sertraline HCl 25 mg PO DAILY 07/25/16 [History] Azithromycin [Zithromax] 250 mg PO DAILY #2 tablet 07/28/16 [Rx] Cefdinir [IJD: Cefdinir] 300 mg PO BID #7 capsule 07/28/16 [Rx] Furosemide [Lasix] 20 mg PO DAILY tablet 07/28/16 [Rx] traMADol [Ultram] 50 mg PO BID PRN #0 tablet 07/28/16 [Rx] Referrals: Tanner Mcghee MD [Primary Care Provider] - - Discharge Summary/Plan Comment DC Time >30 min.: Yes (40) - General Info Date of Service: 07/28/16 Subjective Update: Patient feels better this morning. She is feeling more alert. Still weak and with decreased appetite. Breathing is at baseline. She denies chest pain, fever , or chills. She has been eating and drinking better each day she has been here. - Review of Systems General: Reports: No Symptoms HEENT: Reports: no symptoms Pulmonary: Reports: no symptoms Cardiovascular: Reports: No Symptoms Gastrointestinal: Reports: Vomiting Genitourinary: Reports: no symptoms Musculoskeletal: Reports: no symptoms Skin: Reports: no symptoms Neurological: Reports: No Symptoms - Patient Data Vitals - Most Recent: Last Vital Signs Temp 35.9 C 07/28/16 08:38 Pulse 65 07/28/16 08:38 Resp 18 07/28/16 08:38 BP 118/62 07/28/16 08:38 Pulse Ox 97 07/28/16 08:38 Weight - Most Recent: 67.358 kg I&O - Last 24 hours: Intake & Output 07/27/16 07/28/16 07/28/16 22:59 06:59 14:59 Intake Total 700 Output Total 300 400 Balance 400 -400 Lab Results - Last 24 hrs: Laboratory Results - last 24 hr 07/28/16 07/28/16 Range/Units 07:02 07:02 WBC 5.2 (4.0-10.0) x10^3/uL RBC 3.10 L (4.00-5.50) x10^6/uL Hgb 10.0 L (12.0-16.0) g/dL Hct 29.5 L (33.0-47.0) % MCV 95.2 H (78.0-93.0) fL MCH 32.3 H (26.0-32.0) pg MCHC 33.9 (32.0-36.0) g/dL RDW Coeff of Sami 13.9 (10.0-15.0) % Plt Count 243 (130-400) x10^3/uL Neut % (Auto) 68.8 (50.0-80.0) % Lymph % (Auto) 21.0 L (25.0-50.0) % Willacy % (Auto) 8.5 (2.0-11.0) % Eos % (Auto) 1.5 (0.0-4.0) % Baso % (Auto) 0.2 (0.2-1.2) % Sodium 134 L (136-145) mmol/L Potassium 3.6 (3.5-5.1) mmol/L Chloride 98 (98-107) mmol/L Carbon Dioxide 29 (21-32) mmol/L BUN 18 (7-18) mg/dL Creatinine 0.8 (0.55-1.02) mg/dL Est Cr Clr Drug Dosing 42.78 mL/min Estimated GFR (MDRD) > 60 Glucose 92 (74-106) mg/dL Calcium 8.2 L (8.5-10.1) mg/dL Med Orders - Current: Current Medications Acetaminophen (Tylenol Extra Strength) 1,000 mg PO BID [facility] Last Admin: 07/28/16 08:15 Dose: 1,000 mg Aspirin (Halfprin) 81 mg PO DAILY [facility] Last Admin: 07/28/16 08:13 Dose: 81 mg Azithromycin (Zithromax) 250 mg PO DAILY [facility] Stop: 07/30/16 08:30 Last Admin: 07/28/16 08:18 Dose: 250 mg Bisacodyl (Dulcolax) 10 mg RECTAL DAILY PRN PRN Reason: Constipation Bisacodyl (Dulcolax) 5 mg PO Q72H PRN PRN Reason: Constipation Calcium Carbonate/Glycine (Tums Extra Strength) 1,500 mg PO QID PRN PRN Reason: Heartburn Calcium Citrate (Calcium Citrate + D) 1 tab PO BID [facility] Last Admin: 07/28/16 08:13 Dose: 1 tab Carbidopa/Levodopa (Sinemet Cr 50-200 Mg) 1 tab PO BEDTIME [facility] Last Admin: 07/27/16 21:43 Dose: 1 tab Carbidopa/Levodopa (Sinemet 25-100 Mg) 2 tab PO 0600,1000,1400,1800 [facility] Last Admin: 07/28/16 06:26 Dose: 2 tab Cefdinir (Omnicef) 300 mg PO BID [facility] Last Admin: 07/28/16 08:14 Dose: 300 mg Enoxaparin Sodium (Lovenox) 40 mg SUBCUT BEDTIME [facility] Last Admin: 07/27/16 21:44 Dose: 40 mg Furosemide (Lasix) 20 mg PO DAILY [facility] Last Admin: 07/28/16 08:13 Dose: 20 mg Levothyroxine Sodium (Synthroid) 100 mcg PO ACBREAKFAST BHAVNA Last Admin: 07/28/16 06:26 Dose: 100 mcg Omeprazole (Omeprazole) 20 mg PO ACBREAKFAST BHAVNA Last Admin: 07/28/16 06:27 Dose: 20 mg Oxybutynin Chloride (Oxybutynin Er) 10 mg PO BEDTIME [facility] Last Admin: 07/27/16 21:43 Dose: 10 mg Ropinirole HCl (Requip) 2 mg PO TID [facility] Last Admin: 07/28/16 08:14 Dose: 2 mg Sertraline HCl (Zoloft) 25 mg PO DAILY [facility] Last Admin: 07/28/16 08:18 Dose: 25 mg Simvastatin (Zocor) 20 mg PO BEDTIME BHAVNA Last Admin: 07/27/16 21:43 Dose: 20 mg Sodium Chloride (Saline Flush) 10 ml FLUSH ASDIRECTED PRN PRN Reason: IV Use Last Admin: 07/26/16 14:04 Dose: 10 ml Tramadol HCl (Ultram) 50 mg PO BID PRN PRN Reason: Pain Discontinued Medications Azithromycin (Zithromax) 500 mg PO ONETIME ONE Stop: 07/25/16 15:37 Last Admin: 07/25/16 15:45 Dose: 500 mg Carbidopa/Levodopa (Sinemet Cr 50-200 Mg) 1 tab PO DAILY BHAVNA Last Admin: 07/26/16 08:21 Dose: 1 tab Carbidopa/Levodopa (Sinemet 25-100 Mg) 2 tab PO QID [facility] Last Admin: 07/26/16 08:21 Dose: 2 tab Ceftriaxone Sodium (Rocephin) 1 gm IVPUSH Q24H [facility] Last Admin: 07/26/16 14:02 Dose: 1 gm Furosemide (Lasix) 20 mg PO ONETIME ONE Stop: 07/26/16 11:26 Last Admin: 07/26/16 12:10 Dose: 20 mg Sodium Chloride (Normal Saline) 1,000 mls @ 100 mls/hr IV ASDIRECTED [facility] Last Admin: 07/26/16 03:30 Dose: 100 mls/hr - Exam General: Reports: alert, cooperative, no acute distress HEENT: Reports: Pupils equal, Pupils reactive, Mucous membr. moist/pink Neck: Reports: supple, no thyromegaly. Denies: lymphadenopathy Lungs: Reports: Normal respiratory effort, Rhonchi Cardiovascular: Reports: Regular Rate, Regular Rhythm, No Murmurs Abdomen: Reports: bowel sounds present, soft, no tenderness, no distension Extremities: Reports: no edema, normal pulses Skin: Reports: warm, dry, intact *Q Meaningful Use (DIS) - VTE *Q VTE Criteria *Q: - Stroke *Q Stroke Criteria *Q: - AMI *Q AMI Criteria *Q:
== END 2016-07-28 13:30 | DRG 194 ==
LOC: VM.MS 14:38
PROVIDERS: ADMIT Family Medicine; ATTEND Family Medicine
DX: J18.9 Pneumonia, unspecified organism (principal); E87.1 Hypo-osmolality and hyponatremia; R53.1 Weakness; G20 Parkinson's disease; E03.9 Hypothyroidism, unspecified; E78.5 Hyperlipidemia, unspecified; F32.9 Major depressive disorder, single episode, unspecified; K21.0 Gastro-esophageal reflux disease with esophagitis; I12.9 Hypertensive chronic kidney disease with stage 1 through stage 4 chronic kidney disease, or unspecified chronic kidney disease; N18.9 Chronic kidney disease, unspecified; I50.9 Heart failure, unspecified; I65.29 Occlusion and stenosis of unspecified carotid artery; D35.1 Benign neoplasm of parathyroid gland; E21.5 Disorder of parathyroid gland, unspecified; M19.90 Unspecified osteoarthritis, unspecified site; R32 Unspecified urinary incontinence; E55.9 Vitamin D deficiency, unspecified; D64.9 Anemia, unspecified; Z79.82 Long term (current) use of aspirin; Z79.899 Other long term (current) drug therapy; Z66 Do not resuscitate
CPT/HCPCS: 36415; 80048; 83880; 85025; 86140; 97110-GP; 97161-GP; 97530-GP; A9270-GY; J0696; J1650; J7030; J7050